=== PATIENT | female | born 1975 | race African-American/Black ===

== ENCOUNTER 2019-11-16 17:18 | Inpatient (IN) ==
[2019-11-16] MEDS ORDERED: ASPIRIN PO ONE (17:34)
[2019-11-16 17:43] LABS: BASO# 0.03 X1000 (0.0-0.2); BASO% 0.5 % (0.0-0.8); EOS# 0.09 X1000 (0.0-0.7); EOS% 1.4 % (0.0-10.0); HEMATOCRIT 30.3 % (37.0-47.0); HEMOGLOBIN 9.2 g/dL (12.0-16.0); LYMPH# 2.63 X1000 (1.2-3.4); LYMPH% 41.8 % (20.5-51.1); MCH 25.9 PG (27-31); MCHC 30.4 g/dL (33-37); MCV 85.4 FL (81-99); MONO# 0.56 X1000 (0.11-0.59); MONO% 8.9 % (1.7-9.3); MPV 11.8 FL (7.4-10.4); NEUT# 2.98 X1000 (1.4-6.5); NEUT% 47.4 % (42.2-75.2); PLT 258 X1000 (130-400); RBC 3.55 XMIL (4.2-5.4); RDW 16.4 % (11.5-14.5); WBC 6.29 X1000 (4.8-10.8)
[2019-11-16 17:51] LABS: INR 0.99; PROTIME 13.1 Seconds (11.0-16.0)
[2019-11-16 17:52] LABS: PTT 27.6 Seconds (22.3-41.8)
[2019-11-16 17:58] LABS: ALB/GLOB RATIO 1.3; ALBUMIN 3.9 g/dL (3.5-5.0); CALCIUM 9.2 mg/dL (8.8-10.2); POTASSIUM 4.6 mmol/L (3.5-5.1); TOTAL BILIRUBIN 0.28 mg/dL (0.20-1.00); TOTAL PROTEIN 6.9 g/dL (6.3-8.3)
--- NOTE | 2019-11-16 18:05 | Diag Imaging Result Doc PS360 ---
EXAM: CHEST-2 VIEWS 11/16/2019 HISTORY: chest pain TECHNIQUE: PA and lateral chest COMMENT: Compared to 02/23/2019 there has been no significant change in the appearance of the chest. IMPRESSION: No evidence of acute disease. Electronically signed by Danielito Gandara 11/16/2019 6:03 PM
[2019-11-16] MEDS ORDERED: NS 1,000 ML IV ONE (18:12)
--- NOTE | 2019-11-16 18:19 | PROVIDER DOCUMENTATION ---
HPI-General Adult - General Chief Complaint: Chest Pain Stated Complaint: CP/HEART PT CONFUSION Time Seen by Provider: 11/16/19 17:58 Source: patient Allergies/Adverse Reactions: Patient Allergies Allergy/AdvReac Type Severity Reaction Status Date / Time No Known Allergies Allergy Verified 11/16/19 18:45 Home Medications: Home Medication List Medication Instructions Recorded Confirmed Last Taken Type Albuterol Sulfate Inhaler 2 puff INH Q6H PRN PRN #1 inhaler 11/21/15 11/17/19 Unknown Rx [Ventolin Hfa] Escitalopram [Lexapro] 20 mg PO DAILY 11/17/19 11/17/19 11/16/19 07:00 History Hydrochlorothiazide 12.5 mg PO DAILY 11/17/19 11/17/19 11/16/19 07:00 History Indapamide 2.5 mg PO DAILY 11/17/19 11/17/19 11/16/19 07:00 History Irbesartan/Hydrochlorothiazide 300 mg PO DAILY 11/17/19 11/17/19 11/16/19 07:00 History [Irbesartan-Hctz 300-12.5 mg Tb] 1 tablet Meclizine HCl 25 mg pe PO DAILY 11/17/19 11/17/19 11/16/19 07:00 History PRAVAstatin [Pravachol] 40 mg PO QHS 11/17/19 11/17/19 11/16/19 21:00 History Amlodipine [Norvasc] 10 mg PO DAILY #30 tab 11/24/19 Unknown Rx Iron Carbonyl/Ascorbic Acid 1 ea PO BID tab 11/24/19 Unknown Rx [Icar-C] Omeprazole 40 mg PO DAILY #30 capsule. 11/24/19 Unknown Rx - History of Present Illness -Gen Adult Nature of Presenting Problems: 44 YO F brought in by sister for concerns of her falling off the couch and waking up and not knowing what had happened. Pt states the neighbor had called her phone and when she woke up she was on the floor away from the couch. She only remembers going to sleep on the couch prior to that. She denies taking any sleep aid. She denies any recent illness or sick contacts. Denies head or neck pain and is currently AAOx 3 on exam. She states the only new medication she has taken was Meclizine which she started today for vertigo. Location of Pain/Injury: reports: none Pain Radiation: reports: no radiation Onset/Duration: reports: 1-3 hours ago Context/Activities at Onset: reports: sleep Modifying Factors: improves with: nothing Similar Symptoms Previously?: No Recently seen or treated by another doctor?: No Review of Systems - Adult - REVIEW OF SYSTEMS - ADULT Constitutional: denies: chills, fever Cardiovascular: reports: chest pain Respiratory: reports: no symptoms reported Gastrointestinal: reports: no symptoms reported Genitourinary: reports: no symptoms reported Musculoskeletal: reports: no symptoms reported Integumentary: reports: no symptoms reported Neurological: reports: dizziness/vertigo Psychiatric: reports: no symptoms reported Endocrine: reports: no symptoms reported Hematologic/Lymphatic: reports: no symptoms reported Allergic/Immunologic: reports: no symptoms reported Past History - Adult - PAST MEDICAL HISTORY-ADULT Review of Records: reports: Old Records Reviewed, Medications Reviewed Major Childhood Illnesses: reports: denies history Cardiovascular: reports: HTN, hyperlipidemia Respiratory: reports: asthma. denies: COPD Gastrointestinal: reports: denies history Obstetrical/Gynecological: reports: denies history Genitourinary: reports: denies history Musculoskeletal: reports: neck/back injury Neurological: reports: headaches/migraines Endocrine/Immune: reports: denies history Other Conditions: reports: denies history - PRIOR SURGERIES/PROCEDURES Surgical/Procedure History: reports: BTL, tonsillectomy, hernia repair - IMMUNIZATION STATUS Childhood Immunizations: See Nurse Assessment Flu Vaccine: See Nurse Assessment - FAMILY HISTORY Family History: CAD over 55 yo, CVA/TIA, HTN - SOCIAL HISTORY Smoking: cigarettes Provider spent 3-5 mins advising pt. on dangers of tobacco.: Discussed manners to quit use, and f/u contacts for add'l counseling. Substance Use: denies Living Situation: family Physical Exam-General - PHYSICAL EXAM-ADULT Initial Vital Signs Reviewed: Yes - CONSTITUTIONAL General Appearance: alert, obese - EYES Eyes: PERRL/EOMI, pink conjunctivae - HEAD, EARS, NOSE, MOUTH & THROAT HENMT: normocephalic/atraumatic, moist mucous membranes, TMs normal (no fluid behind TMs) - NECK Neck: full range of motion, supple - RESPIRATORY Respiratory: lungs clear, normal breath sounds - CARDIOVASCULAR Cardiovascular: no murmur - GASTROINTESTINAL (ABDOMEN) Abdominal Exam: non tender, soft, other (obese) - MUSCULOSKELETAL Back Exam: no CVA tenderness Extremity: normal range of motion, normal gait - SKIN Integumentary: normal color, normal turgor, warm/dry - NEUROLOGIC Neurologic: specification manager II-XII nml as tested. negative: facial droop, focal weakness, motor weakness, sensory deficit - PSYCHIATRIC Psych/Mental Status: normal mood/affect, oriented x 3 Progress - PLAN OF CARE/RESULTS Progress/Plan/Lab Results: Vital Signs - 8 hr 11/16/19 17:31 Temperature 98.4 F Pulse Rate 38 L Respiratory Rate 18 Blood Pressure 102/59 O2 Sat by Pulse Oximetry 96 Laboratory Results - last 24 hr 11/16/19 11/16/19 11/16/19 17:29 17:29 17:29 WBC 6.29 RBC 3.55 L Hgb 9.2 L Hct 30.3 L MCV 85.4 MCH 25.9 L MCHC 30.4 L RDW Std Deviation 16.4 H Plt Count 258 MPV 11.8 H Immature Gran % (Auto) 0.0 Neut % (Auto) 47.4 Lymph % (Auto) 41.8 [place] % (Auto) 8.9 Eos % (Auto) 1.4 Baso % (Auto) 0.5 Immature Gran # (Auto) 0.00 Neut # (Auto) 2.98 Lymph # (Auto) 2.63 [place] # (Auto) 0.56 Eos # (Auto) 0.09 Baso # (Auto) 0.03 PT 13.1 INR 0.99 PTT (Actin FS) 27.6 Sodium 139 Potassium 4.6 Chloride 102 Carbon Dioxide 26 Anion Gap 11 BUN 24 H Creatinine 2.0 H Estimated GFR/1.73 m2 33 BUN/Creatinine Ratio 12 Glucose 98 Calculated Osmolality 282 Calcium 9.2 Total Bilirubin 0.28 AST 12 ALT 9 L Alkaline Phosphatase 49 Creatine Kinase 121 Troponin T High Sens Total Protein 6.9 Albumin 3.9 Globulin 3.0 Albumin/Globulin Ratio 1.3 11/16/19 17:29 WBC RBC Hgb Hct MCV MCH MCHC RDW Std Deviation Plt Count MPV Immature Gran % (Auto) Neut % (Auto) Lymph % (Auto) [place] % (Auto) Eos % (Auto) Baso % (Auto) Immature Gran # (Auto) Neut # (Auto) Lymph # (Auto) [place] # (Auto) Eos # (Auto) Baso # (Auto) PT INR PTT (Actin FS) Sodium Potassium Chloride Carbon Dioxide Anion Gap BUN Creatinine Estimated GFR/1.73 m2 BUN/Creatinine Ratio Glucose Calculated Osmolality Calcium Total Bilirubin AST ALT Alkaline Phosphatase Creatine Kinase Troponin T High Sens 9 Total Protein Albumin Globulin Albumin/Globulin Ratio Orders Category Date Time Status Cardiac Monitoring DIRECTED Care 11/16/19 17:34 Active ED: Orthostatic Vital Signs (E DIRECTED Care 11/16/19 18:10 Active ED: Urine Bedside ORDERED Care 11/16/19 18:09 Active Oxygen Therapy- ED Nursing DIRECTED Care 11/16/19 17:34 Active Saline Loc NOW Care 11/16/19 17:34 Active CHEST-2 VIEWS [RAD] Stat Exams 11/16/19 17:34 Completed CBC WITH ELECTRONIC DIFF [HEME] Stat Lab 11/16/19 17:29 Completed CK PROFILE [SP CHEM] Stat Lab 11/16/19 17:29 Completed CK PROFILE [SP CHEM] Stat Lab 11/16/19 18:12 Ordered COMPREHENSIVE METABOLIC PANEL [CHEM] Stat Lab 11/16/19 17:29 Completed PRO B-NATRIURETIC PEPTIDE Stat Lab 11/16/19 17:29 Received PROTIME WITH INR [COAG] Stat Lab 11/16/19 17:29 Completed PTT [COAG] Stat Lab 11/16/19 17:29 Completed TROPONIN T HIGH SENSITIVITY Stat Lab 11/16/19 17:29 Completed UA [URINALYSIS W/POSS RFLX CULT] [URINALYSIS] Stat Lab 11/16/19 18:09 Uncollected URINE DRUG SCREEN Stat Lab 11/16/19 18:09 Uncollected Aspirin Med 11/16/19 17:34 Discontinued 325 mg PO NOW ONE Ns 1000 ml IV Bolus X1 Med 11/16/19 18:12 Ordered 0.9% Sodium Chloride Inj [Ns] 1,000 ml IV 999 mls/hr CP/SOB/Palp >45 yrs of Age Stat Oth 11/16/19 17:34 Ordered EKG [EKG] Stat Ther 11/16/19 17:34 Ordered Result Diagrams: 11/21/19 05:19 11/19/19 08:00 - REASSESSMENT Reassessment #1 Time Reassessed: 21:15 Status: other (pt states she follows with Dr. Johnson who knows about her bradycardia. She has been dealing with this for the past 3 months and it was supposed to have been worked up but she hasn't followed back with the clinic. She has not seen a manager decision support yet.) - EKG 1 Time of EKG reading by physician:: 21:01 EKG Read and Signed by:: Yari Gonzalez Rate: 43 Rhythm: sinus bradycardia QRS: normal MS Interval: normal Prior EKG Comparison: unchanged from prior (02/23/19) - XRAY 1 XRAY Study: Chest Impression: See EMR Report (EXAM: CHEST-2 VIEWS 11/16/2019 HISTORY: chest pain TECHNIQUE: PA and lateral chest COMMENT: Compared to 02/23/2019 there has been no significant change in the appearance of the chest. IMPRESSION: No evidence of acute disease. Electronically signed by Danielito Gandara 11/16/2019 6:03 PM) - CT/MRI 1 CT Study: Head Impression: Normal, See EMR Report (EXAM: CT HEAD W/O CONTRAST 11/16/2019 HISTORY: confusion, vertigo TECHNIQUE: This exam was performed using automated exposure control, adjustment of mA or kV according to patient size, and/or use of iterative reconstruction technique. COMMENT: There is no evidence of mass effect, bleed, or abnormal extra-axial fluid collection. Compared to 02/23/2019 the appearance the brain has not changed significantly. The visualized paranasal sinuses are clear and the calvarium is intact. IMPRESSION: No evidence of acute intracranial disease. Electronically signed by Danielito Gandara 11/16/2019 6:59 PM) - CONSULTS/PCP/HOSPITALIST Notification #1 *Consult/PCP/Hospitalist*: Dr. Peñaloza Time Discussed: 21:20 Consult Disposition: Will see in ED, Admit Departure - Departure Date of Disposition Decision: 11/16/19 Time of Disposition Decision: 21:33 DIAGNOSIS: Symptomatic bradycardia, Renal insufficiency Disposition: ADMITTED INPATIENT 09 Certified Medical Emergency: Emergent Condition: Stable - Critical Care Note This patient required my direct & personal management of CC.: No Attestation - Physician/ SCOTTY Attestation Patient care was provided by Advanced Practice Provider:: No The physician spent face to face time with patient:: Yes Advanced Practice Provider documentation review:: Supervising physician onsite and consulted in the evaluation and care of this patient. The physician did have a face to face encounter with the patient.
--- NOTE | 2019-11-16 19:01 | Diag Imaging Result Doc PS360 ---
EXAM: CT HEAD W/O CONTRAST 11/16/2019 HISTORY: confusion, vertigo TECHNIQUE: This exam was performed using automated exposure control, adjustment of mA or kV according to patient size, and/or use of iterative reconstruction technique. COMMENT: There is no evidence of mass effect, bleed, or abnormal extra-axial fluid collection. Compared to 02/23/2019 the appearance the brain has not changed significantly. The visualized paranasal sinuses are clear and the calvarium is intact. IMPRESSION: No evidence of acute intracranial disease. Electronically signed by Danielito Gandara 11/16/2019 6:59 PM
--- NOTE | 2019-11-16 20:25 | EKG Report ---
Test Performed on : 11/16/2019 5:27:55 PM Test Reason : chest pain Blood Pressure : / mmHG Vent. Rate : 037 BPM Atrial Rate : 037 BPM P-R Int : 174 ms QRS Dur : 090 ms QT Int : 512 ms P-R-T Axes : 061 039 038 degrees QTc Int : 401 ms Marked sinus bradycardia. Cannot rule out Anterior infarct (cited on or before 14-APR-2009) Abnormal ECG When compared with ECG of 23-FEB-2019 09:25, No significant change was found Unconfirmed Result
[2019-11-16 20:36] LABS: URINE SOURCE CLEAN CATCH
[2019-11-16 20:45] LABS: BILIRUBIN URINE NEGATIVE (NEGATIVE); BLOOD URINE MODERATE (NEGATIVE); COLOR YELLOW; GLUCOSE URINE NEGATIVE (NEGATIVE); KETONE URINE NEGATIVE (NEGATIVE); LEUKOCYTES URINE LARGE (NEGATIVE); NITRITE URINE NEGATIVE (NEGATIVE); PROTEIN URINE 50 mg/dL (NEGATIVE); SP GRAVITY URINE 1.026; TURBIDITY URINE TURBID (CLEAR); UROBILINOGEN URINE 3 mg/dL (NORMAL)
[2019-11-16 20:54] LABS: UR EPITHELIAL CELLS >10 /HPF (<10); URINE BACTERIA 1+ /HPF; URINE RBC 20-40 /HPF (<10); URINE WBC TNTC /HPF (<10)
[2019-11-16 20:59] LABS: UR AMPHETAMINES QUAL PRESUMPTIVE POSITIVE (NONE DETECT); UR BARBITUATES QUAL NONE DETECTED (NONE DETECT); UR BENZODIAZEPIN QUAL NONE DETECTED (NONE DETECT); UR CANNABINOIDS QUAL PRESUMPTIVE POSITIVE (NONE DETECT); UR COCAINE QUAL NONE DETECTED (NONE DETECT); UR METHADONE QUAL NONE DETECTED (NONE DETECT); UR OPIATES QUAL NONE DETECTED (NONE DETECT); UR OXYCODONE QUAL NONE DETECTED (NONE DETECT); UR PCP QUAL NONE DETECTED (NONE DETECT)
[2019-11-16 21:09] LABS: URINE CASTS GRANULAR PRESENT; URINE CRYSTALS NONE SEEN; URINE SMALL ROUND CELLS TRANS PRESENT; URINE TRICHOMONAS PRESENT; URINE YEAST NONE SEEN
--- NOTE | 2019-11-16 21:23 | EKG Report ---
Test Performed on : 11/16/2019 8:58:03 PM Test Reason : CP Blood Pressure : / mmHG Vent. Rate : 043 BPM Atrial Rate : 043 BPM P-R Int : 166 ms QRS Dur : 098 ms QT Int : 510 ms P-R-T Axes : 062 037 032 degrees QTc Int : 430 ms Marked sinus bradycardia. Cannot rule out Anterior infarct (cited on or before 14-APR-2009) Abnormal ECG When compared with ECG of 16-NOV-2019 17:27, (Unconfirmed) No significant change was found Unconfirmed Result
[2019-11-17] MEDS: NS 1,000 ML IV SCH ×2 (05:25→17:53)
[2019-11-17] MEDS: ROCEPHIN 1 GM in NS 50 ML IV SCH (05:25)
[2019-11-17] MEDS: PRILOSEC PO SCH (07:00)
--- NOTE | 2019-11-17 08:13 | HISTORY AND PHYSICAL ---
CHIEF COMPLAINT: Brief loss of consciousness prior to admission. HISTORY OF PRESENT ILLNESS: Ms. Janey Garza is a 44-year-old female who has a history of hypertension, anxiety, depression, bronchial asthma, migraine headaches, hyperlipidemia, and she did experience a brief period of loss of consciousness prior to admission. The patient cannot state exactly how long it lasted. She described having associated headaches as well as dizziness. No chest pain but she did have some shortness of breath. The patient was subsequently brought to the hospital by her sister. In the ER, she was noted to have bradycardia with a heart rate as low as 38. The patient is aware of a history of bradycardia in the past. The patient will now be admitted for further management. PAST MEDICAL HISTORY: Bradycardia, anxiety disorder, depression, hypertension. SOCIAL HISTORY: She smokes cigarettes and drinks alcohol. She denies drug use. ALLERGIES: No known drug allergies. PAST SURGICAL HISTORY: She has had a tonsillectomy, umbilical hernia repair, as well section. FAMILY HISTORY: Positive for hypertension as well as cancer. MEDICATIONS: Include the following: Ventolin 2 puffs q.6 hours, hydrochlorothiazide 25 mg p.o. once a day, citalopram 40 mg p.o. daily, meclizine 1 tablet 4 times a day, lisinopril 20 mg p.o. daily. REVIEW OF SYSTEMS: Constitutional: No fever. 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 Eyes: Blurred vision. ENT: She has sinus problem. Cardiovascular: Has chest pain. GI: She has nausea. No abdominal pains. : No dysuria. Musculoskeletal: No joint pains. Dermatology: No skin lesions. Hematology: No bleeding problems. Psychiatric: She has anxiety with depression. Endocrine: No thyroid disease or diabetes. Allergic/Immunologic: No symptoms suggestive of allergic rhinitis. LABORATORY DATA: WBCs 6.29, hematocrit is 30.3, with a platelet count of 258,000. INR is 0.99. Sodium is 139, potassium 4.6, chloride is 102, bicarb 26, BUN is 24, creatinine is 2.0. ProBNP is 740. UA shows a large amount of leukocytes, with numerous WBCs, 20 to 40 RBCs. Urine drug screen positive for amphetamines as well as cannabinoids. Chest x-ray unremarkable. EKG shows marked sinus bradycardia. CT scan of the brain, no acute intracranial abnormalities. ASSESSMENT AND PLAN: 1. Syncope. Etiology not clear. May be related to bradycardia. I will place patient on telemetry. Follow up on serial cardiac enzymes. Maintain on intravenous fluids. Obtain a 2D echo of the heart, carotid Doppler study, as well as an MRA of the head. Also get an EEG. 2. Sinus bradycardia. Place patient on continuous cardiac monitoring. Follow up on serial cardiac enzymes. Check thyroid function tests. Avoid beta blockers as well as calcium channel blockers. Consult with cardiology. 3. Renal insufficiency, Maintain the patient on intravenous fluids. Follow up on renal function. 4. Anemia. Check iron studies as well as B12 and folate level. Stool for occult blood. Follow up on hemoglobin and hematocrit. 5. Elevated proBNP level. Check 2D echo of the heart. 6. Probable urinary tract infection. Obtain urine culture and blood cultures. Start patient on empiric antibiotics. 7. Polysubstance abuse. The patient needs abstains from drug use. 8. Deep vein thrombosis prophylaxis. Sequential compression devices. 9. Gastrointestinal prophylaxis. Proton pump inhibitor. cc: MD Paulino Covarrubias Jr, MD
[2019-11-17] MEDS: CELEXA PO SCH ×2 (08:47→08:51)
[2019-11-17] MEDS: PRINIVIL PO SCH (08:51)
--- NOTE | 2019-11-17 13:26 | Diag Imaging Result Doc PS360 ---
MRA BRAIN W/O CONTRAST - 11/17/2019 INDICATION: syncope TECHNIQUE: Noncontrast MR angiogram of the brain COMPARISON: None FINDINGS: This is only an angiogram. A brain MRI was not ordered. The angiogram appears normal. IMPRESSION: This is only an angiogram of the head. Electronically signed by Nile Major 11/17/2019 1:23 PM
[2019-11-17] MEDS: ULTRAM PO PRN (18:09)
--- NOTE | 2019-11-17 20:36 | EEG REPORT ---
DATE: 11/17/2019 COMMENT: This is a digitally recorded EEG for a 44-year-old patient with reported recent fall, disorientation, vertigo. FINDINGS: During waking, medium amplitude 10 hertz posterior rhythm is present symmetrically and reacts normally to eye opening. Background contains polymorphic and rhythmic theta frequencies over the frontal and central regions symmetrically. Head movement and muscle contraction occurred but artifact did not significantly hinder EEG interpretation. Photic stimulation produced some symmetric entrainment. Hyperventilation was not done. Drowsing occurred with appearance of more generalized slowing and brief attenuation of the posterior rhythm. Stage II sleep was not recorded. No definite epileptiform discharge was identified. INTERPRETATION: Normal EEG. CORRELATION: The absence of epileptiform discharges on a single EEG does not exclude a clinical diagnosis of seizures, but there is nothing on this record to suggest the presence of encephalopathy or of a seizure disorder. cc: MD Kamlesh Mcbride III, MD Roger H. Moss Jr, MD MTDD
[2019-11-17] MEDS ORDERED: TRANDATE PO SCH ×3 (21:00→21:29)
--- NOTE | 2019-11-17 21:11 | PROGRESS NOTE ---
DATE: 11/17/2019 SUBJECTIVE: Ms. Garza is a 44-year-old, patient admitted with syncope, found to have bradycardia. Admission history and physical noted. Clinically patient is doing better. The patient denied any major headache. No chest pain or palpitations. No unusual cough or expectoration. OBJECTIVE: Vital Signs: Noted. Neck: Supple. No JVD. Lungs: Bilateral good air entry present. Cardiovascular: S1 and S2 heard. Abdomen: Soft, globular. Bowel sounds present. Central nervous system: Alert, awake, able to move all 4 limbs. LABORATORY DATA: The patient's admission lab data reviewed. ASSESSMENT AND PLAN: Her problems include syncope, bradycardia and chronic kidney disease. Urinalysis did show pyuria, but urine culture negative. Drug screen positive for amphetamine and marijuana. Encouraged patient to quit using drugs. We will continue IV hydration. Check appropriate labs and close observation. cc: MD Paulino Mo Jr, MD
[2019-11-17] MEDS: PRAVACHOL PO SCH (21:38)
[2019-11-17] MEDS: POTASSIUM CHLORIDE 10 MEQ in NS 1,000 ML IV SCH (21:38)
[2019-11-18] MEDS: ULTRAM PO PRN ×2 (00:23→20:31)
--- NOTE | 2019-11-18 04:12 | CONSULTATION ---
DATE OF CONSULTATION: 11/17/2019 IMPRESSION: 1. Transient diminished consciousness with clinical features very atypical for cardiac syncope. 2. Bradycardia, probably related to beta-neli and diltiazem. 3. Hypertensive cardiovascular disease with moderate concentric LVH with normal LV systolic function. 4. Renal dysfunction. 5. Chronic cigarette use and occasional alcohol use. 6. Polysubstance abuse. RECOMMENDATIONS: 1. Reduce beta neli. Can consider discontinuing altogether, if needed to allow improvement in patient's heart rate to at least 55 beats per minute. 2. Switch diltiazem to amlodipine. 3. Consider addition of hydralazine, if necessary. 4. Curb polysubstance abuse and smoking cessation. HISTORY: This 44-year-old, -[place] female a past history of hypertension, anxiety/depression, hyperlipidemia and smoking was admitted through the emergency room to the intensive care unit after an episode of possible loss of consciousness and with ECG showing sinus bradycardia. The patient also has a history of inconsistent compliance with her antihypertensive regimen. She has been having problems of late with dizziness, which he refers to as vertigo. She describes fairly typical vertigo but she also says she occasionally has lightheadedness. At any rate, she has been taking Antivert for this. 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 She was pretty tired when she went home. She felt some dizziness after getting home and then took 50 mg of meclizine and fell asleep on the couch. She awoke on the floor and did not recall how she had gotten there. She believes someone came knocking at the door and found her somewhat confused. She denies a fall and has had no injury related to rolling off the couch. She was taken to the emergency room for evaluation, where she was found to have bradycardia with heart rate anywhere from 37 beats per minute to 43 beats per minute. It is noteworthy that she has been on labetalol and Cardizem for blood pressure. She has not had any chest pain or palpitations. Echocardiography 09/17/2019 revealed moderate concentric LVH and normal LV systolic function. PAST MEDICAL HISTORY: 1. Hypertension. 2. Inconsistent medical compliance. 3. Anxiety/depression. 4. Hyperlipidemia. ALLERGIES: She has no known drug allergies. MEDICATIONS PRIOR TO ADMISSION: As listed. 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 She smokes cigarettes. Drinks occasional alcoholic beverage. She also smokes occasional marijuana. She denies any other recreational drug use or substance abuse. FAMILY HISTORY: Negative for premature coronary disease. There is a family history of hypertension and stroke. REVIEW OF SYSTEMS: Pulmonary: Noncontributory. Gastrointestinal: Noncontributory. Constitutional: Noncontributory. Remainder of the review of systems negative/noncontributory with 14 total systems reviewed. PHYSICAL EXAM: General: Reveals a obese, adult, female in no distress. Vital signs: Blood pressure 166/93, heart rate 47, oxygen saturation 97% on room air. HEENT: Extraocular movements intact. Mucous membranes moist. Neck: Supple without jugular venous distention. No carotid bruits. Chest: Clear to auscultation bilaterally. Cardiac: Reveals a regular rate and rhythm without appreciable murmur, rub, or gallop. Abdomen: Soft. Bowel sounds are normal. Extremities: Without edema. Neurologic: Alert and fully oriented. Speech is fluent. Moves all 4 extremities equally well. Skin: Warm and dry. Psychiatric: Reveals mood to be appropriate. ELECTROCARDIOGRAM: A 12-lead EKG on initial presentation demonstrates sinus bradycardia at 37 beats per minute. LABORATORY DATA: Includes white blood cell count 6.29, hematocrit 30.3, hemoglobin 9.2, platelet count 258,000. Sodium 139, potassium 4.6, chloride 102, carbon dioxide 26, BUN 24, creatinine 2.0. Glucose. 98, TSH 2.34. Urinalysis abnormal with too numerous to count leukocytes, 20 to 40 red blood cells suggesting microscopic hematuria and presence of granular casts. Drug screen abnormal with presumptive positive for amphetamines and cannabinoids. cc: MD Paulino Claudio Jr, MD MTDD
[2019-11-18] MEDS: ROCEPHIN 1 GM in NS 50 ML IV SCH (04:43)
[2019-11-18 06:03] LABS: BASO# 0.02 X1000 (0.0-0.2); BASO% 0.5 % (0.0-0.8); EOS# 0.07 X1000 (0.0-0.7); EOS% 1.9 % (0.0-10.0); HEMATOCRIT 29.3 % (37.0-47.0); HEMOGLOBIN 8.8 g/dL (12.0-16.0); LYMPH# 1.83 X1000 (1.2-3.4); LYMPH% 49.9 % (20.5-51.1); MCH 25.7 PG (27-31); MCV 85.4 FL (81-99); MONO# 0.26 X1000 (0.11-0.59); MONO% 7.1 % (1.7-9.3); NEUT# 1.49 X1000 (1.4-6.5); NEUT% 40.6 % (42.2-75.2); PLT 261 X1000 (130-400); RBC 3.43 XMIL (4.2-5.4); WBC 3.67 X1000 (4.8-10.8)
[2019-11-18 06:44] LABS: IRON SATURATION 21 %; TIBC 375 ug/dL; TOTAL IRON 77 ug/dL (49-151); UNBOUND IRON 298 ug/dL (112-346)
[2019-11-18 06:47] LABS: AGAP 9; ALB/GLOB RATIO 1.1; ALBUMIN 3.5 g/dL (3.5-5.0); ALKALINE PHOSPHATASE 46 U/L (32-104); BUN 11 mg/dL (8-22); CALCIUM 8.6 mg/dL (8.8-10.2); CHLORIDE 102 mmol/L (98-107); COSMO 273; CREATININE 1.1 mg/dL (0.5-0.9); ESTIMATED GFR > 60; GLUCOSE 98 mg/dL (70-104); GOT 12 U/L (10-30); GPT 8 U/L (10-36); POTASSIUM 4.1 mmol/L (3.5-5.1); SODIUM 137 mmol/L (136-145); TCO2 26 mmol/L (25-35); TOTAL PROTEIN 6.6 g/dL (6.3-8.3)
[2019-11-18 07:01] LABS: FERRITIN 11 ng/mL (13-150)
[2019-11-18] MEDS: NS 1,000 ML IV SCH ×2 (07:14→18:54)
[2019-11-18] MEDS: PRILOSEC PO SCH (07:17)
[2019-11-18] MEDS: ANTIVERT PO SCH (08:00)
[2019-11-18] MEDS: PRINIVIL PO SCH (08:00)
[2019-11-18] MEDS: LOZOL PO SCH (08:00)
[2019-11-18] MEDS: POTASSIUM CHLORIDE 10 MEQ in NS 1,000 ML IV SCH ×2 (08:00→18:17)
[2019-11-18] MEDS: CELEXA PO SCH (08:32)
[2019-11-18] MEDS ORDERED: FLAGYL PO ONE (08:54)
[2019-11-18] MEDS ORDERED: HYDROCHLOROTHIAZIDE PO SCH (09:00)
--- NOTE | 2019-11-18 11:36 | Carotid Study ---
DATE: 11/17/2019 REQUESTING PHYSICIAN: Kamlesh Peñaloza MD EDUCATION SITE MANAGER: [place] INDICATIONS: Syncope. EQUIPMENT: [employer] Vivid E9 ultrasound system with a 9 L-D transducer. FINDINGS: Complete images and complete diagram of ultrasound image can be seen and scanned into the patient's medical record. The peak systolic velocity noted on the right side is in the distal internal carotid artery and is noted to be 93. The peak systolic velocity noted on the left side is noted in the distal internal carotid artery and is noted to be 88. Calculated internal common ratio on the right is 0.74 and on the left right 0.95. Calculated stenosis on the right 0% to 39% percent, left 0% to 39%. There appears to be some atherosclerosis, but at this time it does not produce a hemodynamically significant flow-limiting stenosis. Both vertebral arteries were antegrade flow. INTERPRETATION: By strict velocity criteria, no hemodynamically significant flow-limiting stenosis. cc: MD Kamlesh Dewitt MD Roger H. Moss Jr, MD
[2019-11-18] MEDS ORDERED: TRANDATE PO ONE (17:36)
[2019-11-18] MEDS ORDERED: NORVASC PO ONE (17:36)
[2019-11-18] MEDS ORDERED: APRESOLINE IV PRN (17:45)
--- NOTE | 2019-11-18 19:11 | PROGRESS NOTE ---
DATE: 11/18/2019 SUBJECTIVE: The patient continues without chest discomfort or shortness of breath on room air. OBJECTIVE: Blood pressure 143/87, heart rate 49, with ECG monitor showing sinus bradycardia. Oxygen saturation 99% on room air. There is no significant jugular venous distention. Chest is clear to auscultation. Cardiac exam reveals a regular rate and rhythm, without appreciable murmur or gallop. There is no evidence of peripheral edema. LABORATORY DATA: Includes a white blood cell count 3.67, hematocrit 29.3, hemoglobin 8.8, platelet count 261,000. Sodium 137, potassium 4.1, chloride 102, carbon dioxide 26, BUN 11, creatinine 1.1, glucose 98. Initial troponin T high-sensitivity 8 with followup troponin T high- sensitivity 7. TSH 2.34. IMPRESSION: 1. Transient diminished consciousness with clinical features atypical for cardiac syncope. 2. Bradycardia, probably related to beta-neli and diltiazem. This has improved some with discontinuation of diltiazem and reduction in labetalol dose. 3. Hypertension. 4. Renal dysfunction. This has improved with hydration. 5. Chronic cigarette use as well as occasional alcohol use and marijuana use. RECOMMENDATIONS: 1. Continue current cardiovascular regimen change. 2. Mobilize while monitoring on telemetry. Appears reasonable for patient to transfer out of intensive care unit to telemetry, to facilitate mobilization. 3. Pacemaker does not appear to be needed. 4. If further issues with bradycardia occur, may consider withdrawal of beta-neli altogether; however, it would appear that her blood pressure may require a multidrug regimen for control and that the lowest dose tolerated of labetalol might be useful. 5. I will see further on an as-needed basis. cc: MD Paulino Claudio Jr, MD
--- NOTE | 2019-11-18 20:10 | PROGRESS NOTE ---
DATE: 11/18/2019 SUBJECTIVE: Mr. Garza is doing fair. The patient was seen by concrete paver. Recommendation noted. Patient's blood pressure result reviewed. It was staying fairly benign. Lately, her blood pressure is going up, last blood pressure 183/106. Hasher Machine Operator modified her blood pressure medication. Patient denied any chest pain or palpitations, dull headache. No nausea or vomiting. Tolerating food well. No more syncopal episode. The patient admitted with syncope and bradycardia. Her Hematology and Cardiology consult reviewed. OBJECTIVE: Vital signs: Blood pressure 183/106, pulse 51, respiration 19, temperature 98 degrees. Skin: No rash or petechiae. Pupils reacting to light. Extraocular muscle movement normal. Fundus cannot be penetrated. Good oral hygiene. No tonsillopharyngeal congestion or exudate. Ears and nose benign. Neck: Supple. No JVD, thyromegaly or lymphadenopathy. Chest: Bibasilar crepitation. Heart: S1 and S2 heard. Abdomen: Soft, globular. Bowel sounds present. Central nervous system: Alert, awake. Able to move all 4 limbs. LABORATORY DATA: Done today. Hemoglobin 8.8. Her ferritin was low suggestive of iron deficiency anemia. Her B12 was 368. I did get Hematology consult for possible iron replacement. Urinalysis revealed sky-padivijt-wt-count WBCs, but urine culture was negative. ASSESSMENT/PLAN: The patient did have Trichomonas in the urine. The patient received Flagyl. Patient has significant rectal bleed. She was scheduled to have colonoscopy tomorrow by zoning technician as an outpatient. Computer Operations Analyst recommended GI consultation. We are waiting for GI evaluation. Meanwhile, we are going to monitor her blood pressure, continue the rest of the treatment, and close observation. Her electrolytes done today, BUN was 11, creatinine 1.1. CONSIDERATIONS: 1. Syncope. 2. Bradycardia. 3. Acute kidney injury. Improved. 4. Iron deficiency anemia. 5. Trichomoniasis. Treated. Overall plan discussed with the patient and she is in agreement. cc: MD Paulino Mo Jr, MD
[2019-11-18] MEDS: PRAVACHOL PO SCH (20:28)
[2019-11-18] MEDS ORDERED: NORVASC PO SCH (21:16)
[2019-11-19] MEDS: POTASSIUM CHLORIDE 10 MEQ in NS 1,000 ML IV SCH (04:32)
[2019-11-19] MEDS: ROCEPHIN 1 GM in NS 50 ML IV SCH (04:44)
[2019-11-19 08:08] LABS: BASO# 0.02 X1000 (0.0-0.2); BASO% 0.4 % (0.0-0.8); EOS# 0.12 X1000 (0.0-0.7); EOS% 2.6 % (0.0-10.0); HEMATOCRIT 31.5 % (37.0-47.0); HEMOGLOBIN 9.9 g/dL (12.0-16.0); LYMPH# 1.41 X1000 (1.2-3.4); LYMPH% 30.7 % (20.5-51.1); MCH 26.5 PG (27-31); MCHC 31.4 g/dL (33-37); MCV 84.5 FL (81-99); MONO# 0.43 X1000 (0.11-0.59); MONO% 9.4 % (1.7-9.3); MPV 11.2 FL (7.4-10.4); NEUT# 2.61 X1000 (1.4-6.5); NEUT% 56.9 % (42.2-75.2); PLT 266 X1000 (130-400); RBC 3.73 XMIL (4.2-5.4); RDW 15.5 % (11.5-14.5); WBC 4.59 X1000 (4.8-10.8)
[2019-11-19 08:27] LABS: AGAP 9; ALB/GLOB RATIO 1.2; ALBUMIN 4.2 g/dL (3.5-5.0); ALKALINE PHOSPHATASE 53 U/L (32-104); BUN 10 mg/dL (8-22); CALCIUM 9.6 mg/dL (8.8-10.2); CHLORIDE 102 mmol/L (98-107); COSMO 271; ESTIMATED GFR > 60; GLUCOSE 100 mg/dL (70-104); GOT 12 U/L (10-30); GPT 8 U/L (10-36); POTASSIUM 4.2 mmol/L (3.5-5.1); SODIUM 136 mmol/L (136-145); TCO2 25 mmol/L (25-35); TOTAL BILIRUBIN 0.49 mg/dL (0.20-1.00); TOTAL PROTEIN 7.7 g/dL (6.3-8.3)
[2019-11-19] MEDS: NS 1,000 ML IV SCH ×3 (08:37→23:20)
[2019-11-19] MEDS: PRILOSEC PO SCH (08:39)
[2019-11-19] MEDS: PRINIVIL PO SCH (08:39)
[2019-11-19] MEDS: NORVASC PO SCH (08:39)
[2019-11-19] MEDS: CELEXA PO SCH (08:39)
[2019-11-19] MEDS: ANTIVERT PO SCH (08:39)
[2019-11-19] MEDS: TRANDATE PO SCH ×2 (08:39→21:26)
[2019-11-19] MEDS: LOZOL PO SCH (08:40)
[2019-11-19] MEDS: VENOFER 300 MG in NS 250 ML IV SCH (10:23)
--- NOTE | 2019-11-19 11:33 | PROGRESS NOTE ---
DATE: 11/19/2019 SUBJECTIVE: The patient is doing better. The patient does have a dull headache. No typical chest pain. No fever or chills. The patient claims she does feel dizzy at times. The patient was evaluated by a court worker, fuel efficient automobile designer, and railroad wheels and axle inspector. Patient is planning to get IV iron treatment today. The patient is going to the bathroom by herself. Her telemetry results reviewed. Her heart rate is staying around 49. We decreased dose of her beta neli. No dysuria or hematuria. The patient did receive treatment for Trichomonas. OBJECTIVE: Vital signs: As noted. Neck: Supple. No JVD. Lungs: Bilateral good air entry present. CVS: S1 and S2 heard. Abdomen: Soft, globular. Bowel sounds present. Extremities: No cyanosis or clubbing. No acute DVT. GENERAL INTERNAL MEDICINE PHYSICIAN: Alert, awake, and answering questions fairly well. Able to move all 4 limbs. CONSIDERATION: 1. Iron deficiency anemia secondary to blood loss. The patient was supposed to have colonoscopy as an outpatient today, but it was postponed. Patient did received Flagyl yesterday for Trichomonas. We encouraged the patient for her sexual partner to get treatment for Trichomonas. 2. Hypertension. Her blood pressure is doing better. 3. Bradycardia. A court worker recommendation noted. 4. Encouraged patient to avoid marijuana and other street drugs. 5. I am going to repeat blood work today. 6. Her acute kidney injury improved. 7. If clinical condition permits, we will plan discharging patient home soon. 8. I am going to ambulate the patient in the room and hallway. 9. Her carotid Doppler was benign. Echocardiogram result reviewed, and it was negative. 10. Overall plan discussed with the patient. cc: MD Paulino Mo Jr, MD
[2019-11-19] MEDS: ULTRAM PO PRN (16:07)
--- NOTE | 2019-11-19 19:43 | GASTROENTEROLOGY CONSULTATION ---
DATE: 11/19/2019 REASON FOR CONSULT: GI bleed and anemia. HISTORY OF PRESENT ILLNESS: Ms. Garza is a 44-year-old female, who has a history of hypertension, anxiety, depression, asthma, migraine headaches, hyperlipidemia, and benign cyst on the right breast. The patient had come to the hospital on 11/16/2019, she mentioned that on Friday when the doorbell rang, she was trying to get up to get to the door. She passed out and she fell on her knees. The patient does not have any fever, but she mentioned that she had chills, headache, shortness of breath. She was brought to the ER by her sister and when she was in the ER, the patient's heart rate was low. It was 38. She has a history of low heart rate. The patient also mentioned that she had bowel movements on Friday, and she noted that her stools were dark and tarry. She complained of abdominal pain in the right upper quadrant. She was supposed to have her colon[facility], but she had to cancel it. The patient does take Aleve for her pain, she remembered taking 4 tablets of Aleve on Friday. The patient mentioned that she has depression because of her son who is 15 years old and is always in trouble which is causing her depression to elevate. The patient has a history of smoking and using marijuana every 2 to 3 nights a week. Patient's lab on admission were hemoglobin 9.2, hematocrit was 30.3. Today her hemoglobin is 9.9 and 31.5. Her chest x- ray on 11/16/2019 had shown no evidence of acute disease. Her head CT on 11/16/2019 showed no evidence of acute intracranial disease. Carotid Doppler study showed by strict velocity criteria she had no hemodynamically significant flow-limiting stenosis. Her brain MRA angiogram appears to be normal. REVIEW OF SYSTEMS: As per HPI. Otherwise, 12 point review of systems is negative. PAST MEDICAL HISTORY: Anxiety, depression, hypertension, asthma, migraine headaches, hyperlipidemia, and benign cyst on the right breast. PAST SURGICAL HISTORY: Tonsillectomy, abdominal hernia repair, one . SOCIAL HISTORY: The patient is single. She has 3 kids. She smokes 2 cigarettes. Does marijuana every 2 to 3 nights and occasionally she has alcohol. FAMILY HISTORY: Her dad had colon cancer. Her mom had heart disease, and her family has a history of asthma and diabetes. HOME MEDICATIONS: 1. Albuterol sulfate inhaler 2 puffs every 6 hours as needed. 2. Diltazem [id number] mg p.o. daily. 3. Lexapro 20 mg p.o. daily. 4. Indapamide 2.5 mg p.o. daily. 5. Irbesartan/hydrochlorothiazide 300 mg daily. 6. Pravachol 40 mg at bedtime. 7. Labetalol 1 tablet p.o. twice a day. 8. Meclizine 25 mg p.o. daily. 9. Hydrochlorothiazide 12.5 mg p.o. daily. PHYSICAL EXAMINATION: Vital Signs: Temperature 98.1 degrees, pulse 50, respirations 20, blood pressure 154/94, oxygen saturation 96% on room air. Her weight is 104. BMI is 40.9 kg/m2. General: She is alert, oriented x3. No acute distress. Answering questions appropriately. HEENT: Pale conjunctivae. No icterus. PERRL. Neck: Supple. Lungs: Wheezing heard in the anterior leone. Cardiovascular: Patient is bradycardic. Abdomen: Obese, soft, tender in the right upper quadrant. Hypoactive bowel sounds heard in all 4 quadrants. Extremities: No clubbing, no cyanosis, no edema. Pedal pulses 2+ present bilaterally. Neurologic: The patient is alert, oriented x3. Nonfocal. Cranial nerves 2 through 12 grossly intact. LAB: WBCs are 4.59, hemoglobin is 3.73, WBC is 4.59, RBC is 3.73, hemoglobin 9.9, hematocrit 31.5, platelet count is 266,000. Sodium 136, potassium 4.2, chloride 102, carbon dioxide 25, anion gap 9, BUN 10, creatinine 1.0, glucose 100, calcium 9.6, total bilirubin 0.49, AST 12, ALT 8, alkaline phos 53. Her toxicology report on admission showed she was presumptive positive for urine amphetamines and presumptive positive for cannabinoids. IMPRESSION AND PLAN: 1. Gastrointestinal bleed. 2. Anemia. 3. Syncope status post fall. 4. Sinus bradycardia. 5. Alcohol abuse. 6. Tobacco abuse. 7. Marijuana drug abuse. PLAN: Ms. Garza is a 44-year-old female with a history of hypertension, migraines, anxiety, depression, and bradycardia. GI has been consulted for her anemia and GI bleed. The patient's hemoglobin today is 9.9 and hematocrit 31.5. The patient is currently on intravenous fluids with normal saline at 75 mL. She is receiving antibiotics, Zosyn, Rocephin. She is on Prilosec 40 mg p.o. daily. The patient is also getting iron infusion, Venofer, a total of 2 bags today and the rate of 166.66 ml/hr. We plan to do an EGD on Friday. We have discussed the risks, benefits, and alternatives of the procedure to the patient. The patient acknowledges understanding of the plan of care. Further plan of care will be based on the EGD findings. We will continue to monitor the patient's hemoglobin and hematocrit, and follow the plan of care per PCP. This plan was discussed with Dr. Hart. Thank you for your consult, and please call us for any further questions or concerns. Dictated by SHIREEN Gómez for Jesus Hart MD cc: Paulino Johnson Jr, MD [facility]
--- NOTE | 2019-11-19 20:00 | HEMO/ONC CONSULTATION ---
DATE: 11/18/2019 REQUESTING PHYSICIAN: Dr. Peñaloza. We appreciate this consult. CHIEF COMPLAINT: Iron deficiency anemia. HISTORY OF PRESENT ILLNESS: Ms. Janey Garza is a 44-year-old female with a history of hypertension, anxiety, depression, asthma, migraine headaches, hyperlipidemia, and drug abuse. The patient reports that she has been experiencing headaches and dizziness. Upon presentation to the [facility] Emergency Department, the patient was found to be significantly bradycardic with a heart rate into the upper 30s. She was admitted for evaluation. Additionally, the patient was found to be anemic with iron deficiency. Hemoglobin on presentation was 9.2. Iron saturation was 21%. We are consulted for the same. PAST MEDICAL HISTORY: As in HPI. PAST SURGICAL HISTORY: 1. Tonsillectomy. 2. Umbilical hernia repair. 3. section. FAMILY HISTORY: Significant for cancer in multiple family members. MEDICATIONS ON ADMISSION: 1. Ventolin. 2. Hydrochlorothiazide. 3. Citalopram. 4. Meclizine. 5. Lisinopril. ALLERGIES: The patient has no known drug allergies. REVIEW OF SYSTEMS: A 14-point review of systems was obtained and is negative except for as mentioned in HPI. PHYSICAL EXAMINATION: General: Ms. Garza is a pleasant 44-year-old female lying supine in bed in no immediate distress. Vital Signs: Temperature 97.5, blood pressure 183/87, heart rate 49, respirations 21, O2 saturation 100% on room air. HEENT: Normocephalic, atraumatic. Mucous membranes are pale and moist. Sclerae are anicteric. Extraocular movements intact. Neck: Supple. Lungs: With decreased breath sounds throughout. Cardiovascular: S1, S2 are heard without murmur, rub or gallop. Patient is bradycardic. Abdomen: Soft nondistended, nontender. Bowel sounds positive in all quadrants. No rebound or guarding noted. Extremities: Without clubbing, cyanosis, or edema. Dermatologic: No rashes, bruises or lesions. Neurologic: The patient is awake, alert, and oriented x3. She has no focal motor deficit. She does have a facial tic. LABORATORY DATA: Hemoglobin 8.8, hematocrit 29.5, white blood cell count 3.67, platelets 261. Sodium 137, potassium 4.1, chloride 102. CO2 is 26, BUN 11, creatinine 1.1 and glucose 98. Calcium 8.6, magnesium 2.0. Iron saturation 21%. Ferritin is 11, B12 is 368. IMAGING STUDIES: Head CT is no acute abnormality. MRA brain is normal. ASSESSMENT AND PLAN: 1. Iron-deficiency anemia in patient with a 3- to 4-month history of bright red blood per rectum. Gastroenterology has been consulted. We will infuse Venofer x2 doses and monitor complete blood count. 2. Syncope. The patient is currently on a quality assurance monitor chassis. Workup is pending. Cardiology is following. 3. Sinus bradycardia, known. Cardiology is following. 4. Elevated proBNP. The patient is scheduled for a 2D echocardiogram. 5. Polysubstance abuse, known. The patient does have a facial tic. Will monitor for withdrawal. 6. We will follow along with you and make further recommendations pending outcomes. The above reflects the history, exam, assessment, and plan of Dr. Gentile. Dictated by SHIREEN Schaffer for Agustin Gentile MD cc: SHIREEN Schaffer MD Roger H. Moss Jr, MD
[2019-11-19] MEDS: PRAVACHOL PO SCH (21:25)
[2019-11-20] MEDS: ULTRAM PO PRN (01:35)
[2019-11-20] MEDS: ROCEPHIN 1 GM in NS 50 ML IV SCH (05:25)
[2019-11-20] MEDS: PRILOSEC PO SCH (06:30)
[2019-11-20] MEDS: CELEXA PO SCH (08:11)
[2019-11-20] MEDS: PRINIVIL PO SCH (08:11)
[2019-11-20] MEDS: NS 1,000 ML IV SCH ×2 (08:11→10:24)
[2019-11-20] MEDS: LOZOL PO SCH (08:11)
[2019-11-20] MEDS: VENOFER 300 MG in NS 250 ML IV SCH (08:11)
[2019-11-20] MEDS: NORVASC PO SCH (08:11)
[2019-11-20] MEDS: TRANDATE PO SCH ×2 (08:12→20:15)
[2019-11-20] MEDS: ANTIVERT PO SCH (08:12)
--- NOTE | 2019-11-20 13:15 | PROGRESS NOTE ---
DATE: 11/20/2019 SUBJECTIVE: VITAL SIGNS: Stable with temperature 98.7 degrees, heart rate 18, blood pressure 154/98, elevated from earlier this morning. O2 saturation on room air is 100%. Stool was negative for blood. There is history of GI bleeding and cystitis. OBJECTIVE: She is being followed by Dr. Hart. EGD is planned for Friday morning. The patient complains with a headache unrelieved by tramadol, which is ordered. This is changed to [place] 7.5 q.6 hours p.r.n. headache. PLAN: Ambulate, diet increased to gastrointestinal soft. CBC to be rechecked tomorrow morning. cc: MD Paulino Quiros Jr, MD
[2019-11-20] MEDS: NORCO-7.5 PO PRN (18:03)
--- NOTE | 2019-11-20 19:08 | GASTROENTEROLOGY PROGRESS NOTE ---
DATE: 11/20/2019 REQUESTING PHYSICIAN: Paulino Johnson Jr., MD SUBJECTIVE: The patient is resting in bed. She is feeling better. She denies any nausea, vomiting, vomiting blood, or passing blood in the stools. OBJECTIVE: Temperature of 97.3 degrees, pulse of 53, respiratory rate 18, blood pressure 121/75, saturating 97% on room air. Body weight of 236 pounds 4.8 ounces. BMI 41.9 kg/m2. General appearance: Obese, lying in bed in no acute distress. HEENT: Pale conjunctivae. No icterus. Pupils equal and reactive to light. Neck is supple. Abdomen is obese, soft, nontender, nondistended. No guarding or rebound. Extremities: No cyanosis or clubbing. Neurologic-go: Alert, awake, oriented x3. LABORATORY DATA: Hemoglobin and hematocrit are 9.9 and 31.5, white count of 4.59, platelet count of 266,000. Sodium 132, potassium 4.2, chloride 102, bicarbonate 25, anion gap 9, BUN of 10, creatinine 1, glucose of 100, calcium is 9.6. Total bilirubin is 0.29. AST 12, ALT 8, total protein 7, albumin of 4.2. Folate is 9.8 and B12 is 368. Urine toxicology screen was positive for amphetamines and cannabinoids. Blood culture x2 were negative at 48 hours. Stool for occult blood is negative. Urine culture showing mixed wilber. IMPRESSION: 1. Gastrointestinal bleed, with history of rectal bleeding going on for 3-4 months. 2. Anemia. 3. Syncope, status post fall. 4. Sinus bradycardia. 5. Alcohol abuse. 6. Tobacco abuse. 7. Marijuana and drug abuse. RECOMMENDATIONS: 1. We will continue to watch her hemoglobin and hematocrit. We will transfuse as needed. We will continue on PPIs once daily. She is getting iron infusions per the Hematology team. We will plan to do EGD on Friday morning. The risks, benefits, indications and alternatives were discussed with the patient and all questions were answered. The patient is being monitored for bradycardia by the primary care team and the Cardiology team. We will start her on iron-C b.i.d. for anemia. 2. We will start her on MiraLAX once daily for constipation and bowel regimen. 3. The patient was counseled to lose weight. 4. Counseled to quit tobacco, alcohol and drug abuse. The above plan was discussed with the patient and all questions answered. Please call us with any further questions. cc: MD Paulino Kapadia Jr, MD Heather Shah, MD MTDD
[2019-11-20] MEDS: ICAR-C PO SCH (20:15)
[2019-11-20] MEDS: PRAVACHOL PO SCH (20:15)
[2019-11-21] MEDS: ROCEPHIN 1 GM in NS 50 ML IV SCH (05:32)
[2019-11-21] MEDS: NORCO-7.5 PO PRN (06:06)
[2019-11-21] MEDS: NS 1,000 ML IV SCH ×3 (06:06→22:10)
[2019-11-21 06:08] LABS: BASO# 0.03 X1000 (0.0-0.2); BASO% 0.7 % (0.0-0.8); EOS% 2.3 % (0.0-10.0); HEMATOCRIT 29.1 % (37.0-47.0); HEMOGLOBIN 8.7 g/dL (12.0-16.0); LYMPH# 1.89 X1000 (1.2-3.4); LYMPH% 42.6 % (20.5-51.1); MCH 25.5 PG (27-31); MCHC 29.9 g/dL (33-37); MCV 85.3 FL (81-99); MONO# 0.51 X1000 (0.11-0.59); MONO% 11.5 % (1.7-9.3); MPV 11.9 FL (7.4-10.4); NEUT# 1.91 X1000 (1.4-6.5); NEUT% 42.9 % (42.2-75.2); PLT 249 X1000 (130-400); RBC 3.41 XMIL (4.2-5.4); RDW 15.5 % (11.5-14.5); WBC 4.44 X1000 (4.8-10.8)
--- NOTE | 2019-11-21 08:10 | PROGRESS NOTE ---
DATE: 11/21/2019 Vital signs stable with temperature 98.3 degrees, heart rate 53, respirations 19, blood pressure 146/87, O2 saturation on room air 100%. She has had no abdominal discomfort or melena. Chest is clear. She continues to have a mild headache, but [place] helps better than tramadol. EGD is planned for tomorrow morning. cc: MD Paulino Quiros Jr, MD
[2019-11-21] MEDS: PRINIVIL PO SCH (08:12)
[2019-11-21] MEDS: MIRALAX PO SCH (08:12)
[2019-11-21] MEDS: NORVASC PO SCH (08:12)
[2019-11-21] MEDS: ICAR-C PO SCH ×2 (08:12→20:52)
[2019-11-21] MEDS: LOZOL PO SCH (08:12)
[2019-11-21] MEDS: PRILOSEC PO SCH (08:12)
[2019-11-21] MEDS: CENTRUM SILVER PO SCH (08:12)
[2019-11-21] MEDS: CELEXA PO SCH (08:12)
[2019-11-21] MEDS: ANTIVERT PO SCH (08:12)
[2019-11-21] MEDS: TRANDATE PO SCH ×2 (08:13→20:53)
--- NOTE | 2019-11-21 14:25 | GASTROENTEROLOGY PROGRESS NOTE ---
DATE: 11/21/2019 SUBJECTIVE: The patient is resting in bed. She is feeling better. She denies any new complaints. Denies any nausea, vomiting, vomiting blood, or passing blood in the stools. PHYSICAL EXAMINATION: Vital Signs: Temperature is 98.3 degrees, pulse rate of 53, respiratory rate of 19, blood pressure 146/87, saturating 100% room air. Body weight of 238 pounds. BMI of 42.2 kg/m2. General Appearance: Obese. Lying in bed, in no acute distress. HEENT: Pale conjunctivae. No icterus. Pupils equal, reactive to light. Neck: Supple. Abdomen: Obese soft, nontender, nondistended. No guarding. No rebound. Extremities: No cyanosis, clubbing. Neurologic: Alert, awake, oriented x3. DIAGNOSTIC DATA: Hemoglobin and hematocrit are 8.7 and 29.1, white count 4.4, platelet count of 249,000. IMPRESSION AND PLAN: 1. Gastrointestinal bleed with history of rectal bleeding ongoing the last 3 to 4 months. 2. Anemia. 3. Constipation with the patient having hard stools. 4. Syncope, status post fall. 5. Sinus bradycardia. 6. Alcohol abuse. 7. Tobacco abuse. 8. Marijuana and drug abuse. RECOMMENDATIONS: 1. Her hematocrit is slightly trending down. She denies any signs of overt GI bleeding. We will schedule for an EGD tomorrow under anesthesia. The risks, benefits, indications, and alternatives to the procedure were discussed with the patient and all questions were answered. 2. We will start patient on MiraLAX for constipation and bowel regimen. 3. The patient will continue on PPIs once daily. 4. The patient will continue iron C b.i.d. and multivitamin once daily for anemia. 5. The patient was counseled to quit tobacco, alcohol, or drug abuse. The patient was also counseled to lose weight. 6. The above plan was discussed with the patient and all questions were answered. Please call with any further questions. cc: MD Paulino Kapadia Jr, MD
[2019-11-21] MEDS: PRAVACHOL PO SCH (20:52)
[2019-11-21] MEDS: SODIUM CHLORIDE 0.9% INJ SCH (20:52)
[2019-11-21] MEDS: PROTONIX IV SCH (20:52)
[2019-11-22] MEDS: NORCO-7.5 PO PRN (02:15)
[2019-11-22] MEDS ORDERED: DIPRIVAN 1% ONE (06:45)
[2019-11-22] MEDS ORDERED: FENTANYL ONE (06:47)
[2019-11-22] MEDS: ROCEPHIN 1 GM in NS 50 ML IV SCH (07:07)
--- NOTE | 2019-11-22 08:25 | ENDOSCOPY OPERATIVE NOTE ---
[facility] ENDOSCOPY OPERATIVE NOTE , EGD PROCEDURE REPORT EXAM DATE: 11/22/2019 PATIENT NAME: Janey Garza MR#: [id number] BIRTHDATE: 1975 ATTENDING: Keny Sawant MD STATUS: inpatient SMALL OFFSET PRINTER: INDICATIONS: The patient is a 44 yr old female here for an EGD due to Anemia, GI bleed, Syncope, Bra dycardia, Polysubstance abuse. PROCEDURE PERFORMED: EGD w/ biopsy MEDICATIONS: Per Anesthesia ESTIMATED BLOOD LOSS: None CONSENT: The patient understands the risks and benefits of the procedure and understands that these r isks include, but are not limited to: sedation, allergic reaction, infection, perforation and/or bleeding. Alternative means of evaluation and treatment include, among others: physical exam, x-rays, and/or surgical intervention. The patient elects to proceed with this endoscopic procedure. DESCRIPTION OF PROCEDURE: During pre-op preparation period all mechanical and medical equipment was c hecked for proper function. Hand hygiene and appropriate measures for infection prevention was taken. After the risks, benefits and alternatives of the procedure were thoroughly explained, Informed consent was verified, confirmed and timeout was successfully executed by the treatment team. The patient was anesthetized with topical anesthesia and the [id number] ([id number]) endoscope was introduced through the mouth and advanced to the second portion of the duoden um. Retroflexion was performed in the stomach and revealed no abnormalities. The gastroscope was then slowly withdraw n and removed. The patient's toleration of the procedure was good. ESOPHAGUS: Irregular Z line at 42 cms from incisors. STOMACH: Mild bile gastritis (inflammation) was found in the gastric body and gastric antrum. A biop sy was performed using cold forceps. Sample sent for histology. DUODENUM: The duodenal mucosa showed no abnormalities in the duodenal bulb, 1st part duodenum, and 2n d part duodenum. ADVERSE EVENTS: There were no complications. IMPRESSIONS: 1. Irregular Z line at 42 cms from incisors 2. Bile gastritis (inflammation) was found in the gastric body and gastric antrum; biopsy was perfor med 3. The duodenal mucosa showed no abnormalities in the duodenal bulb, 1st part duodenum, and 2nd part duodenum RECOMMENDATIONS: 1. Await biopsy results 2. Colonoscopy in AM PPI QD for 90 days Continue Iron C BID and MVi QD for 90 days GERD lifetsyle changes 3. Start anti-reflux diet. 4. Begin an anti-reflux lifestyle: avoid acidic foods and drinks (like coffee and soda), do not lie down three hours after eating, elevate the head of your bed 6 to 9 inches, stop smokiing and reduce weight if needed. REPEAT EXAM: Keny Sawant MD eSigned: Keny Sawant MD 11/22/2019 8:24 AM CC: CPT CODES: 03195 Upper gastrointestinal endoscopy including esophagus, stomach, and either the du odenum and/or jejunum as appropriate; with biopsy, single or multiple ICD CODES: The ICD and CPT codes recommended by this software are interpretations from the data that the [facility] staff has captured with the software. The verification of the translation of this report to the ICD and CPT co nilsa and modifiers is the sole responsibility of the health care institution and practicing physician where this report was generated. [employer] will not be held responsible for the validity of the ICD and CPT codes i ncluded on this report. A assumes no liability for data contained or not contained herein. CPT is a registered tra demark of the [employer]. PATIENT NAME: Janey Garza MR#: [id number]
[2019-11-22] MEDS ORDERED: XYLOCAINE-MPF 2% ONE (08:40)
--- NOTE | 2019-11-22 09:18 | PROGRESS NOTE ---
DATE: 11/22/2019 SUBJECTIVE: The patient says she still has a little abdominal discomfort but when I pressed on her abdomen, it did not elicit any pain. She came in with a GI bleed and anemia. Her hemoglobin yesterday was 8.7, hematocrit 29.1. She just got back from having an EGD which showed what appears to be biliary gastritis. OBJECTIVE: Vital Signs: Blood pressure is 134/74, respirations 13, pulse 60, temperature 98 degrees Fahrenheit. HEENT: She is normocephalic. EOMs intact. PERRLA. Throat clear. Lungs: Clear to auscultation and percussion without rhonchi, rales, or wheezes. Heart: Regular rate and rhythm without murmurs, gallops, or friction rubs. Abdomen: Soft. Active bowel sounds. No organomegaly or tenderness. Neurologic: Examination intact grossly. ASSESSMENT: 1. Gastrointestinal bleed. 2. Abdominal pain. 3. Gastritis. 4. Polysubstance abuse, has been using marijuana, was positive for amphetamines. I asked her about this. She says she is not taking any but she took some pain medicines from her friend and she does not know what it was. PLAN: Probable colonoscopy tomorrow. cc: Paulino Johnson Jr, MD
[2019-11-22] MEDS: MIRALAX PO SCH (10:26)
[2019-11-22] MEDS: CELEXA PO SCH (10:29)
[2019-11-22] MEDS: CENTRUM SILVER PO SCH (10:29)
[2019-11-22] MEDS: NORVASC PO SCH (10:30)
[2019-11-22] MEDS: PROTONIX IV SCH ×2 (10:34→20:00)
[2019-11-22] MEDS: LOZOL PO SCH (10:35)
[2019-11-22] MEDS: ICAR-C PO SCH ×2 (10:35→20:00)
[2019-11-22] MEDS: ANTIVERT PO SCH (10:35)
[2019-11-22] MEDS: TRANDATE PO SCH ×2 (10:36→20:00)
[2019-11-22] MEDS: PRINIVIL PO SCH (10:36)
[2019-11-22] MEDS ORDERED: GOLYTELY PO ONE (12:00)
[2019-11-22] MEDS: NS 1,000 ML IV SCH ×2 (12:11→18:42)
[2019-11-22] MEDS: PRAVACHOL PO SCH (20:00)
[2019-11-22] MEDS: SODIUM CHLORIDE 0.9% INJ SCH (20:00)
[2019-11-23] MEDS: ROCEPHIN 1 GM in NS 50 ML IV SCH (05:25)
[2019-11-23] MEDS: MIRALAX PO SCH (08:19)
[2019-11-23] MEDS: CELEXA PO SCH (08:20)
[2019-11-23] MEDS: NORVASC PO SCH (08:20)
[2019-11-23] MEDS: PROTONIX IV SCH ×2 (08:20→20:00)
[2019-11-23] MEDS: NORCO-7.5 PO PRN (08:20)
[2019-11-23] MEDS: SODIUM CHLORIDE 0.9% INJ SCH ×2 (08:20→20:01)
[2019-11-23] MEDS: ANTIVERT PO SCH (08:21)
[2019-11-23] MEDS: PRINIVIL PO SCH (08:21)
[2019-11-23] MEDS: ICAR-C PO SCH ×2 (08:21→20:00)
[2019-11-23] MEDS: CENTRUM SILVER PO SCH (08:22)
[2019-11-23] MEDS: TRANDATE PO SCH ×2 (08:22→20:02)
[2019-11-23] MEDS: LOZOL PO SCH (08:22)
[2019-11-23] MEDS: NS 1,000 ML IV SCH (08:22)
--- NOTE | 2019-11-23 08:32 | PROGRESS NOTE ---
DATE: 11/23/2019 SUBJECTIVE: The patient says she still has a little abdominal pain. She was lying on her belly when I first came in to the room. I awakened her. She says she has some tightness in her belly, but it certainly does not seem very severe. Said that she did not get all of her prep down for her colonoscopy today. Will have to see what Gastroenterology says about this. She says she did not get any diarrhea from it, so the odds are that she is not prepped. OBJECTIVE: Vital Signs: Blood pressure 107/64, respirations 17, pulse 49, temp 98.4 degrees Fahrenheit. HEENT: She is normocephalic. EOMS intact. PERRLA. Throat clear. Lungs: Clear to auscultation and percussion without rhonchi, rales, or wheezes. Heart: Regular rate and rhythm without murmurs, gallops, or friction rubs. Abdomen: Soft. Active bowel sounds. No organomegaly or tenderness. Neurologic: Cranial nerves II through XII intact grossly. Sensory and motor intact. Reflexes 1+, all. LABORATORY DATA: Hemoglobin is 8.7. ASSESSMENT: 1. Gastrointestinal bleed. 2. Anemia. 3. Abdominal pain. PLAN: GI to assess. The patient needs colonoscopy. cc: Paulino Johnson Jr, MD
[2019-11-23] MEDS ORDERED: GOLYTELY PO ONE (10:00)
--- NOTE | 2019-11-23 10:58 | GASTROENTEROLOGY PROGRESS NOTE ---
DATE: 11/23/2019 SUBJECTIVE: Ms. Garza is a 44-year-old, female sitting in bed. Family at the bedside. The patient has denied any vomiting or any abdominal pain, but c/o of feeling nauseated after drinking the GoLYTELY prep. She has denied noticing any further bleeding episodes. PHYSICAL EXAMINATION: Vital Signs: Temperature 98.4 degrees, pulse 47, respirations 14, blood pressure 136/75, oxygen saturation 97% on room air. The patient's weight is 236 pounds, BMI is 41.9 kg/m2. General: She is alert and oriented x3, morbidly obese, and in no acute distress. HEENT: Pale conjunctivae. No icterus. PERRL. Neck: Supple. Lungs: Clear to auscultation. Cardiovascular: The patient is bradycardic. Abdomen: Obese, soft, nontender. Hypoactive bowel sounds heard in all 4 quadrants. Extremities: No clubbing, no cyanosis, no edema. Pedal pulses 2+ present bilaterally. Neurologic: She is alert and oriented x3. LABORATORY DATA: On 11/21/2019, WBC 4.44, RBC 3.41, hemoglobin 8.7, hematocrit 29.1, platelet count is 249,000. The patient has got no new chemistries. IMPRESSION AND PLAN: GI Bleed AVERY Gastritis Constipation Syncope s/p fall Sinus bradycardia Alcohol abuse Tobacco abuse PLAN: Ms. Garza is a 44-year-old, female with a history of hypertension, migraine, anxiety, depression, and bradycardia. GI has been following her for her anemia and GI bleed. An EGD was done on 11/22/2019. The patient had mild gastritis in the gastric body and the gastric antrum. Biopsy was taken, and the duodenal mucosa showed no abnormalities in the duodenal bulb, first part, and the second part. A colonoscopy was scheduled for this morning, but the patient did not finish her GoLYTELY prep. The patient is currently on PPIs daily, and she will continue it for 90 days. She is on iron twice a day, and multivitamin tablets daily and will continue it for 90 days. For her bowel regimen, she is on MiraLAX 17 grams. The patient is advised to follow the GERD lifestyle. The patient is counseled on quitting tobacco, alcohol, and drug use, and counseled on losing weight. We will do her colonoscopy tomorrow. Further plan of care will be based on the colonoscopy findings. We have discussed the risks, benefits, and alternatives of the procedure to the patient. Patient acknowledged understanding of the plan of care. This plan was discussed with Dr. Hart. Please call us for any further questions or concerns. Dictated by SHIREEN Gómez for Jesus Hart MD cc: Paulino Johnson Jr, MD Physician Attestation I have seen and examined the patient. I have discussed and reviewed the note by Marlene IYER and agree with findings and plan as documented. Patient was not completely prepped. Continue golytely. Will perform colonoscopy
[2019-11-23] MEDS: PRAVACHOL PO SCH (20:00)
[2019-11-24] MEDS: NORCO-7.5 PO PRN ×2 (00:37→10:51)
[2019-11-24] MEDS: NS 1,000 ML IV SCH ×2 (00:38→15:48)
[2019-11-24] MEDS: ROCEPHIN 1 GM in NS 50 ML IV SCH (04:52)
[2019-11-24] MEDS ORDERED: DIPRIVAN 1% ONE (07:28)
[2019-11-24] MEDS ORDERED: FENTANYL ONE (07:34)
--- NOTE | 2019-11-24 09:03 | ENDOSCOPY OPERATIVE NOTE ---
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 PROCEDURE PERFORMED: Colonoscopy, diagnostic MEDICATIONS: Per Anesthesia PREP TYPE: GoLytely
[2019-11-24] MEDS: CELEXA PO SCH (10:50)
[2019-11-24] MEDS: ANTIVERT PO SCH (10:50)
[2019-11-24] MEDS: PRINIVIL PO SCH (10:50)
[2019-11-24] MEDS: PROTONIX IV SCH (10:50)
[2019-11-24] MEDS: ICAR-C PO SCH (10:50)
[2019-11-24] MEDS: NORVASC PO SCH (10:50)
[2019-11-24] MEDS: CENTRUM SILVER PO SCH (10:51)
[2019-11-24] MEDS: SODIUM CHLORIDE 0.9% INJ SCH (10:51)
[2019-11-24] MEDS: LOZOL PO SCH (10:51)
[2019-11-24] MEDS: TRANDATE PO SCH (12:07)
[2019-11-24] MEDS: MIRALAX PO SCH (12:07)
[2019-11-24 15:50] VITALS: BP 116/84
--- NOTE | 2019-11-25 09:09 | DISCHARGE SUMMARY ---
ADMISSION DATE: 11/16/2019 DISCHARGE DATE: 11/24/2019 FINAL DIAGNOSES: 1. Syncope of unknown etiology. 2. Anemia of iron deficiency. 3. Gastritis. 4. Rectal bleeding. 5. Hyper-menorrhagia. 6. Vertigo. 7. Polysubstance abuse. 8. Hypertension. 9. Asthma. 10. Depression. 11. Renal insufficiency, improved with IV fluids. 12. Bradycardia. HISTORY OF PRESENT ILLNESS/HOSPITAL COURSE: The patient came in with a brief episode of just a few seconds of syncope. Workup was negative. Cardiology was involved and could not find any cardiological vascular reasons for syncope. She thinks it is from her vertigo, which is now improved. She gave a history of 3 months or so of some bright rectal bright red rectal bleeding. Colonoscopy was done, which was essentially normal. Her EGD did show some gastritis. She told me today that she had been having very heavy periods and that most of her abdominal pain is now when she is having her periods. Earlier she told me that she had had more upper abdominal discomfort, but the story has changed somewhat. She did well with IV fluids and was given some iron IV. Consultations were with GI, Dr. Hart; hematology, Dr. Quinteros; and cardiology, Dr. Olivares. MRA of the brain and CT of the brain were both normal. She feels much better. Hemoglobin is around 8.7. It has been recommended to keep her on proton pump inhibitor and on iron supplementation, which we will continue to do. I think that we could get her evaluated by [facility] as an outpatient for hyper- menorrhagia. She is not bleeding at this time. We will continue her current medications from home. I have encouraged her to stop methamphetamine and stop her marijuana use. We will place her on omeprazole 40 mg daily and on iron supplementation. I will see her back in the office within the next week. We will stop any beta-blockers or calcium channel blockers since she did have some bradycardia. cc: Paulino Johnson Jr, MD
== END 2019-11-24 15:56 | disposition home or self-care (01) | DRG 308 ==
LOC: ED 17:18 → SUATTDRO 22:23 → EDIPHOLD 22:23 → ICU 11-17 14:55 → 2N 11-19 00:43
PROVIDERS: ADMIT Emergency Medicine; ATTEND Emergency Medicine